=== PATIENT | female | born 1990 | race Caucasian/White ===

== ENCOUNTER 2019-02-11 12:21 | Emergency (ER) | payer SELFPAY ==
[~2019-02-11] VITALS: Ht 157.5 cm; Wt 59.4 kg
[2019-02-11 12:23] VITALS: BP 112/73
== END 2019-02-11 15:45 | disposition left against medical advice (07) ==
LOC: ED 15:38
DX: N73.0 Acute parametritis and pelvic cellulitis (principal); N76.0 Acute vaginitis
CPT/HCPCS: 36415; 76830; 80053; 81001; 84703; 85025; 87086; 87210; 87491; 87591; 87808; 96372; 99284; J0696